=== PATIENT | female | born 1990 | race Caucasian/White ===

== ENCOUNTER 2022-01-11 07:59 | Emergency (ER) | payer OTHER, SELFPAY ==
[2022-01-11 08:15] VITALS: BP 140/84; PULSE 87; RESP 16; TEMP 36.6; O2SAT 99
--- NOTE | 2022-01-11 08:35 | ED.FEMALEGU ---
HPI - Female Genitourinary General Chief complaint: Urogenital-Female Stated complaint: POSSIBLE UTI Time Seen by Provider: 01/11/22 08:03 Source: patient and RN notes reviewed Mode of arrival: ambulatory Limitations: no limitations History of Present Illness MD elicited complaint: dysuria and UTI Pertinent past history: recurrent UTIs Onset (ago): day(s) (1) Location of symptoms: urethra Severity: mild Female Urogenital Radiation: Non-Radiating Severity scale (1-10): 3 Quality of pain: burning Consistency: constant Urinary symptoms: Dysuria Exacerbating factors: none Relieving factors: none Associated symptoms: denies other symptoms Treatment prior to arrival: none Sexual activity: No Patient : No Related Data Home Medications Medication Instructions Recorded Confirmed methylphenidate HCl 18 mg 18 mg PO DAILY 01/11/22 01/11/22 tablet,extended release 24 hr ([facility]cert[facility]) omeprazole 20 mg capsule,delayed 20 mg PO DAILY 01/11/22 01/11/22 release Allergies Allergy/AdvReac Type Severity Reaction Status Date / Time No Known Allergies Allergy Verified 01/11/22 08:23 Review of Systems Review of Systems: All systems reviewed & are unremarkable except as noted in HPI and below Constitutional: Constitutional: Reports no additional constitutional complaints Eyes: Eyes: Reports no additional eye complaints ENT: Reports system reviewed and no additional complaints, except as documented Cardiovascular: Cardiovascular: Reports no additional cardiovascular complaints Respiratory: Respiratory: Reports no additional respiratory complaints Gastrointestinal: Gastrointestinal: Reports no additional gastrointestinal complaints Genitourinary: Genitourinary: Reports no additional female genitourinary complaints Musculoskeletal: Musculoskeletal: Reports no additional musculoskeletal complaints Integumentary/Breasts: Skin/Breast: Reports system reviewed and no additional complaints, except as docu Neurologic: Reports system reviewed and no additional complaints, except as documented Psychiatric: Psychiatric: Reports no additional psychiatric complaints Endocrine: Endocrine: Reports no additional endocrine complaints Hematologic/Lymphatic: Hematologic/Lymphatic: Reports no additional hematologic/lymphatic complaints Allergic/Immunologic: Allergic/Immunologic: Reports no additional allergic/immunologic complaints PMFSH Past Medical History Medical History UTI (urinary tract infection) Exam Const: General: no acute distress Nutritional Appearance: well nourished Orientation/consciousness: patient oriented x3 Limitations: no limitations HENMT: Head: normal to inspection Ears: external ears normal, TM's normal bilaterally and EAC's normal General nose exam: Normal external nose present and Normal nares present Face and sinus: normal facial exam and sinuses nontender Mouth: Yes Normal oral and palatal mucosa present and Yes moist mucous membranes Teeth and gingiva: dentition normal Throat: posterior oropharynx normal Eyes: Conjunctivae: conjunctivae normal Pupils: Equal, round and reactive pupils present EOM: EOMs intact bilaterally Neck: Neck: normal visual inspection, no lymphadenopathy and no meningeal signs Chest: Chest palpation & inspection: normal inspection of the chest Resp: Effort & Inspection: normal respiratory effort Auscultation: clear to auscultation bilaterally Cardio: Rate: regular rate Rhythm: regular rhythm GI: GI Palp: Yes Soft to palpation and No Tenderness to palpation present (GI) Auscultation: normal bowel sounds : General: Yes bladder normal to palpation and Yes no CVA tenderness Bimanual exam- vagina & uterus: bladder normal to palpation Back/Spine/Pelvis: Back: no CVA tenderness Skin: General skin exam: normal color Rashes: no rashes Wounds: no wounds Neuro: General: patient oriented x3, moves
[2022-01-11] MEDS: ACETAMINOPHEN 325 MG TABLET 650 MG PO (09:01)
[2022-01-11 09:08] LABS: Color Urine Orange (Yellow)
[2022-01-11 09:09] LABS: Appearance Urine Slightly Cloudy (Clear); Blood Urine Trace-Intact (Negative); Glucose Urine UA 1+ (Negative); Ketones Urine 1+ (Negative); Protein Urine 3+ (Negative)
[2022-01-11 09:10] LABS: Add Urine Microscopic? YES; Bacteria Urine Trace /hpf; Bilirubin Urine 2+ (Negative); Leukocyte Esterase Ur 3+ (Negative); Nitrate Urine Positive (Negative); Squamous Epithelial Cell Urine Occasional /hpf (Few); Urobilinogen Urine >=8.0 mg/dL (0.2-1.0); WBC Urine 16-20 /hpf (0-3)
[2022-01-11 09:33] VITALS: BP 119/78; PULSE 86; RESP 16; TEMP 36.8; O2SAT 100
== END 2022-01-11 09:35 | disposition home or self-care (01) ==
PROVIDERS: Emergency Provider Emergency Medicine
DX: N39.0 Urinary tract infection, site not specified (principal)
CPT/HCPCS: 81001; 99283; A9270